=== PATIENT | female | born 1990 | race American Indian/Alaskan Native ===

== ENCOUNTER 2017-10-22 16:59 | Emergency (ER) | payer MEDICAID ==
[2017-10-22 18:44] VITALS: O2SAT 99
--- NOTE | 2017-10-22 19:34 | C.PDOC ---
History Of Present Illness Patient presents to the ER with a complaint of a dull, aching, throbbing headache associated with occasional dizziness intermittently for the past month. Patient reports the episodes occur approximately every 2-3 days. Denies nausea, vomiting, weakness, slurred speech, or change in vision. Time Seen by Provider: 10/22/17 19:34 Chief Complaint (Nursing): Dizziness/Lightheaded History Per: Patient History/Exam Limitations: no limitations Onset/Duration Of Symptoms: Days, Intermittent Episodes Current Symptoms Are (Timing): Still Present Activity At Onset Of Symptoms: Other Seizure Or Post-ictal Symptoms: None Possible Causative Factor(s): Other (Not known) Fall Associated With With Symptoms: No Severity: Mild Pain Scale Rating Of: 2 Recent travel outside of the [place]: No Additional History Per: Patient - Symptoms Of CVA Associated Symptoms: denies: Impaired Speech, Seizure Activity, New Vision Deficit(Left), New Vision Deficit(Right), Decreased Ability To Walk, New Confusion Recent Aspirin Use: No Current Coumadin Use?: No Recent Head Trauma: No Past Medical History Reviewed: Historical Data, Nursing Documentation, Vital Signs Vital Signs: Last Vital Signs Temp 98.3 F 10/22/17 18:28 Pulse 86 10/22/17 18:28 Resp 20 10/22/17 18:28 BP 99/55 L 10/22/17 18:28 Pulse Ox 99 10/22/17 20:53 Family History: States: No Known Family Hx - Social History Hx Alcohol Use: No Hx Substance Use: No - Immunization History Hx Tetanus Toxoid Vaccination: No Hx Influenza Vaccination: No Hx Pneumococcal Vaccination: No Review Of Systems Constitutional: Negative for: Fever, Chills Eyes: Negative for: Vision Change Cardiovascular: Negative for: Chest Pain Gastrointestinal: Negative for: Nausea, Vomiting Musculoskeletal: Negative for: Back Pain Skin: Negative for: Rash Neurological: Positive for: Headache, Dizziness. Negative for: Weakness, Change in Speech Psych: Negative for: Anxiety Physical Exam - Physical Exam Appears: Non-toxic Skin: Warm, Dry Head: Normacephalic Eye(s): bilateral: Normal Inspection, PERRL, EOMI Oral Mucosa: Moist Neck: Trachea Midline, Supple Chest: Symmetrical, No Tenderness Cardiovascular: Rhythm Regular Respiratory: No Rales, No Rhonchi, No Wheezing Gastrointestinal/Abdominal: Soft, No Tenderness Back: Normal Inspection Extremity: Normal ROM Extremity: Bilateral: Atraumatic Pulses: Left Dorsalis Pedis: Normal, Right Dorsalis Pedis: Normal Neurological/Psych: Oriented x3, Normal Speech, Normal Cognition, No Romberg, Other (neg nystagmus) Gait: Steady ED Course And Treatment - Laboratory Results Result Diagrams: 10/22/17 20:03 10/22/17 20:03 ECG: Interpreted By Me, Viewed By Me ECG Rhythm: Sinus Rhythm (83), Nonspecific Changes O2 Sat by Pulse Oximetry: 99 (Room air) Pulse Ox Interpretation: Normal Progress Note: EKG, blood work, and urinalysis ordered. Reevaluation Time: 20:53 Reassessment Condition: Improved Disposition Counseled Patient/Family Regarding: Studies Performed, Diagnosis, Need For Followup, Rx Given - Disposition Referrals: Vladimir Dunaway MD [Staff Provider] - Disposition: HOME/ ROUTINE Disposition Time: 19:34 Condition: FAIR Additional Instructions: Please return if symptoms recur Prescriptions: Meclizine [Meclizine*] 25 mg PO Q6 #20 tab Ondansetron ODT [Zofran ODT] 1 odt PO BID PRN #6 odt PRN Reason: Nausea/Vomiting Instructions: General Headache (ED), Dizziness (ED) Forms: [employer] ([place] Citizen) - Clinical Impression Clinical Impression: Dizziness, Headache - Scribe Statement The provider has reviewed the documentation as recorded by the Scribmirian Baez All medical record entries made by the Scribe were at my direction and personally dictated by me. I have reviewed the chart and agree that the record accurately reflects my personal performance of the history, physical exam, medical decision making, and the department course for this patient. I have also personally directed, reviewed, and agree with the discharge instructions and disposition.
[2017-10-22 20:06] LABS: BASO % 0.7 % (0.0-2.0); EOS # 0.1 K/uL (0.0-0.7); EOS % 0.9 % (0.0-4.0); HEMOGLOBIN 13.2 g/dL (11.0-16.0); MEAN CELL VOLUME 89.5 fL (81.0-99.0); MEAN CORPUSCULAR HEMOGLOBIN 30.1 pg (27.0-31.0); MEAN CORPUSCULAR HGB CONC 33.6 g/dL (33.0-37.0); MEAN PLATELET VOLUME 7.7 fL (7.2-11.7); MONO # 0.8 K/uL (0.0-0.8); MONO % 9.9 % (0.0-10.0); NEUT # 4.8 K/uL (1.8-7.0); NEUT % 62.5 % (50.0-75.0); RBC 4.38 Mil/uL (3.80-5.20); RED CELL DISTRIBUTION WIDTH 13.7 % (11.5-14.5); WHITE BLOOD COUNT 7.6 K/uL (4.8-10.8)
[2017-10-22 20:12] LABS: HCG,QUALITATIVE URINE NEGATIVE (NEGATIVE)
[2017-10-22 20:13] LABS: SQUAMOUS EPITHIAL 4 /hpf (0-5); URINE BACTERIA RARE (<OCC); URINE BILIRUBIN NEGATIVE (NEGATIVE); URINE CLARITY Hazy (Clear); URINE COLOR Yellow (YELLOW); URINE GLUCOSE (UA) NORMAL (Normal); URINE LEUKOCYTE ESTERASE NEG Leu/uL (Negative); URINE NITRATE NEGATIVE (NEGATIVE); URINE PROTEIN NEGATIVE (NEGATIVE); URINE UROBILINOGEN NORMAL mg/dL (0.2-1.0)
[2017-10-22 20:14] LABS: URINE BLOOD 1+ (NEGATIVE)
[2017-10-22 20:18] LABS: ALB/GLOB RATIO 1.2 (1.0-2.1); ALT/SGPT 26 U/L (9-52); AST/SGOT 17 U/L (14-36); BLOOD UREA NITROGEN 10 mg/dL (7-17); CALCIUM 9.2 mg/dl (8.6-10.4); GFR AFRICAN-AMERICAN > 60; GFR NON-AFRICAN AMERICAN > 60
--- NOTE | 2017-10-22 20:51 | CT ---
EXAM: CT Head Without Intravenous Contrast CLINICAL HISTORY: 27 years old, female; Condition or disease; Headache; Headache not specified TECHNIQUE: Axial computed tomography images of the head/brain without intravenous contrast. All CT scans at this facility use one or more dose reduction techniques, viz.: automated exposure control; ma/kV adjustment per patient size (including targeted exams where dose is matched to indication; i.e. head); or iterative reconstruction technique. COMPARISON: No relevant prior studies available. FINDINGS: Brain: No intracranial hemorrhage. No mass. No definite edema. Ventricles: No hydrocephalus. Bones/joints: No acute fracture. Soft tissues: Unremarkable. Sinuses: No acute sinusitis. Mastoid air cells: No mastoid effusion. Orbits: Unremarkable as visualized. IMPRESSION: 1. No definite acute intracranial abnormality.
[2017-10-22 20:57] VITALS: BP 100/64; PULSE 74; RESP 18; TEMP 99
--- NOTE | 2017-10-24 12:14 | CARD ---
APPROVED REPORT EKG Measurement Heart [id number] <Conclusion> Sinus rhythm with premature atrial complexes with aberrant conduction Otherwise normal ECG
== END 2017-10-22 21:35 | disposition home or self-care (01) ==
LOC: C.ER 16:59
DX: R51 Headache (principal); R42 Dizziness and giddiness
CPT/HCPCS: 70450; 80053; 81001; 84703; 85025; 93005; 96374; 96375; 99285; J1885; J2405